=== PATIENT | female | born 1945 | race African-American/Black ===

== ENCOUNTER 2016-10-16 07:22 | Day surgery (SDC) | payer MEDICARE, OTHER ==
[~2016-10-16 07:22] MED LIST: KETOROLAC TROMETHAMINE 0.45% 4 DROP/0.4 ML DROPERETTE OS PRN
[2016-10-16] MEDS: TETRACAINE HCL 0.5% OPH SOLN 0.6 ML DROPERETTE OS PRN ×2 (07:51→08:14)
[2016-10-16] MEDS: BESIFLOXACIN HCL 0.6% OPH SUSP 5 ML BOTTLE OS PRN ×4 (07:51→08:46)
[2016-10-16] MEDS: CYCLOPENTOLATE 0.2%/PHENYLEPHRINE 1% OPH SOLN 2 ML OS PRN ×3 (07:51→08:10)
[2016-10-16] MEDS: TROPICAMIDE 1% OPH SOLN 3 ML OS PRN ×3 (07:51→08:10)
[2016-10-16] MEDS ORDERED: MIDAZOLAM 2 MG/2 ML INJ ONE (08:01)
[2016-10-16] MEDS: LIDOCAINE 4% INJ/PF (40 MG/ML) 5 ML AMPUL OS PRN ×2 (08:20)
[2016-10-16] MEDS: BUPIVACAINE HCL 0.75% INJ/PF (7.5 MG/1 ML) 10 ML SDV OS PRN ×2 (08:20)
[2016-10-16] MEDS: PHENYLEPHRINE/KETOROLAC 1%-0.3% 4 ML VIAL ONE ×2 (08:28)
[2016-10-16] MEDS: LIDOCAINE 1% INJ-PF (10 MG/ML) 30 ML SDV ONE ×2 (08:30→08:31)
[2016-10-16] MEDS: CHONDR SU A NA/HYALUR INTRAOC KIT (SURGICARE) ONE ×2 (08:32)
--- NOTE | 2016-10-16 09:29 | [facility] OPERATIVE REPORT E ---
[facility] Operative Report NAME: DAGO EVANGELISTA AGE: 71Y DATE OF SURGERY: 10/16/2016 ROOM: PREOPERATIVE DIAGNOSIS: Cataract, left eye. POSTOPERATIVE DIAGNOSIS: Cataract, left eye. PROCEDURE PERFORMED: Phacoemulsification with posterior chamber intraocular lens, left eye. SURGEON: MARSHA ARCHER M.D. ANESTHESIA: Topical with MAC. INDICATIONS FOR SURGERY: Difficulty reading words on TV and road signs. Best corrected visual acuity 20/50. PROCEDURE: The patient was brought to the Operating Room and placed on the operative table. Following tetracaine drops, topical anesthesia was administered. This consisted of instrument wipe pledgets soaked in a solution of 4% Xylocaine mixed with 0.75% Marcaine in a 1:2 ratio. A 2 x 1 cm pledget was placed in the superior fornix. A 1 x 1 cm pledget was placed in the inferior fornix. The eye was patched shut for 5 minutes. The patch was removed. The eye was sterilely prepped and draped in the usual manner. Lid speculum was placed in the eye. The pledgets were removed and 4-0 black silk sutures were placed around the superior and the inferior rectus muscles to be used as traction. A conjunctival peritomy was made at the 10 o'clock position. Hemostasis was obtained with bipolar cautery. A posterior limbal groove was created using a crescent knife and dissected anteriorly towards the cornea. A sharp point blade was used to create a paracentesis site at the 2 o'clock position. A 2.4-mm keratome was used to enter the anterior chamber through the groove. Viscoelastic was injected into the anterior chamber. An anterior capsulotomy was performed using Utrata forceps in a capsulorrhexis fashion. Hydrodissection and hydrodelineation were performed. Phacoemulsification was performed in [id number] technique. A total of 23 seconds phaco time was used. Following this, the I/A unit was used to remove residual cortex. Viscoelastic was injected into the capsular bag. Intraocular lens model [id number], 23.5 diopters, serial number [id number], was placed in the capsular bag. The I/A unit was used to remove residual viscoelastic. The wound was seen to be watertight under high and low pressure, and no sutures were placed. The intraocular lens was well centered. The pressure was adjusted in the eye to normal pressure. The 4-0 black silk sutures and lid speculum were removed. The eye was shielded after Besivance drops were placed. The patient tolerated the procedure well and was sent to the Recovery Room in good condition. DICTATING PHYSICIAN: MARSHA ARCHER M.D. [id number] PHY#: [id number] ID: [id number] JOB#: [id number] ACCT: [id number] cc:MARSHA ARCHER M.D. >
--- NOTE | 2016-10-16 09:29 | [facility] DISCHARGE SUMMARY E ---
[facility] Discharge Summary NAME: DAGO EVANGELISTA AGE: 71Y ADMITTED: 10/16/2016 DISCHARGED: 10/16/2016 FINAL DIAGNOSIS: Cataract, left eye. HOSPITAL COURSE: The patient is a 71-year-old lady who underwent uneventful cataract extraction with intraocular lens implant, left eye, on 10/16/2016. She will be discharged to home. She was instructed to resume preoperative medications, to take Tylenol as needed for discomfort, to keep her eye shielded, to use Besivance, Durezol and Ilevro at 3 p.m. and 8 p.m., and to follow up in my office in 1 day. DICTATING PHYSICIAN: MARSHA ARCHER M.D. [id number] PHY#: [id number] ID: [id number] JOB#: [id number] ACCT: [id number] cc:MARHSA ARCHER M.D. >
[2016-10-16] MEDS ORDERED: LIDOCAINE 1% INJ-PF (10 MG/ML) 30 ML SDV ONE (12:40)
== END 2016-10-16 09:38 | disposition home or self-care (01) ==
LOC: SC 07:22
PROVIDERS: ATTEND Ophthalmology
PROC: 08RK3JZ Replacement of Left Lens with Synthetic Substitute, Percutaneous Approach (ICD-10-PCS; principal; 2016-10-16 08:30)
DX: H25.813 Combined forms of age-related cataract, bilateral (principal); H04.123 Dry eye syndrome of bilateral lacrimal glands; E11.9 Type 2 diabetes mellitus without complications; E78.00 Pure hypercholesterolemia, unspecified; I10 Essential (primary) hypertension; K21.9 Gastro-esophageal reflux disease without esophagitis; R00.2 Palpitations; Z88.0 Allergy status to penicillin; Z88.5 Allergy status to narcotic agent; I69.364 Other paralytic syndrome following cerebral infarction affecting left non-dominant side; Z79.899 Other long term (current) drug therapy; I25.2 Old myocardial infarction; Z79.84 Long term (current) use of oral hypoglycemic drugs
CPT/HCPCS: 66984; 82962; V2632; J2250; J3490 ×4; A9270; C9447; 142

== ENCOUNTER 2016-11-06 08:19 | Day surgery (SDC) | payer MEDICARE, OTHER ==
[~2016-11-06 08:19] MED LIST changes: +BUPIVACAINE HCL 0.75% INJ/PF (7.5 MG/1 ML) 10 ML SDV OD PRN; +CHONDR SU A NA/HYALUR INTRAOC KIT (SURGICARE) ONE; +KETOROLAC TROMETHAMINE 0.45% 4 DROP/0.4 ML DROPERETTE OD PRN; -KETOROLAC TROMETHAMINE 0.45% 4 DROP/0.4 ML DROPERETTE OS PRN; +LIDOCAINE 4% INJ/PF (40 MG/ML) 5 ML AMPUL OD PRN; +PHENYLEPHRINE/KETOROLAC 1%-0.3% 4 ML VIAL ONE
[2016-11-06] MEDS: CYCLOPENTOLATE 0.2%/PHENYLEPHRINE 1% OPH SOLN 2 ML OD PRN ×3 (08:34→09:00)
[2016-11-06] MEDS: TROPICAMIDE 1% OPH SOLN 3 ML OD PRN ×3 (08:35→09:01)
[2016-11-06] MEDS: BESIFLOXACIN HCL 0.6% OPH SUSP 5 ML BOTTLE OD PRN ×3 (08:36→09:36)
[2016-11-06] MEDS: TETRACAINE HCL 0.5% OPH SOLN 0.6 ML DROPERETTE OD PRN ×2 (08:38→09:02)
[2016-11-06] MEDS ORDERED: MIDAZOLAM 2 MG/2 ML INJ ONE (08:54)
[2016-11-06] MEDS ORDERED: FENTANYL CITRATE INJ/PF 100 MCG/2 ML AMPUL ONE (08:55)
--- NOTE | 2016-11-06 09:48 | [facility] OPERATIVE REPORT E ---
[facility] Operative Report NAME: DAGO EVANGELISTA AGE: 71Y DATE OF SURGERY: 11/06/2016 ROOM: PREOPERATIVE DIAGNOSIS: Cataract, right eye. POSTOPERATIVE DIAGNOSIS: Cataract, right eye. PROCEDURE PERFORMED: Phacoemulsification with posterior chamber intraocular lens, right eye. SURGEON: MARSHA ARCHER M.D. ANESTHESIA: Topical with MAC. INDICATIONS FOR SURGERY: Difficulty reading words on TV. Best corrected visual acuity 20/40. PROCEDURE: The patient was brought to the Operating Room and placed on the operative table. Following tetracaine drops, topical anesthesia was administered. This consisted of instrument wipe pledgets soaked in a solution of 4% Xylocaine mixed with 0.75% Marcaine in a 1:2 ratio. A 2 x 1 cm pledget was placed in the superior fornix. A 1 x 1 cm pledget was placed in the inferior fornix. The eye was patched shut for 5 minutes. The patch was removed. The eye was sterilely prepped and draped in the usual manner. Lid speculum was placed in the eye. The pledgets were removed and 4-0 black silk sutures were placed around the superior and the inferior rectus muscles to be used as traction. A conjunctival peritomy was made at the 10 o'clock position. Hemostasis was obtained with bipolar cautery. A posterior limbal groove was created using a crescent knife and dissected anteriorly towards the cornea. A sharp point blade was used to create a paracentesis site at the 2 o'clock position. A 2.4-mm keratome was used to enter the anterior chamber through the groove. Viscoelastic was injected into the anterior chamber. An anterior capsulotomy was performed using Utrata forceps in a capsulorrhexis fashion. Hydrodissection and hydrodelineation were performed. Phacoemulsification was performed in [id number]-[id number] technique. A total of 29 seconds phaco time was used. Following this, the I/A unit was used to remove residual cortex. Viscoelastic was injected into the capsular bag. Intraocular lens model SN60WF, 22.0 diopters, serial number [id number], was placed in the capsular bag. The I/A unit was used to remove residual viscoelastic. The wound was seen to be watertight under high and low pressure, and no sutures were placed. The intraocular lens was well centered. The pressure was adjusted in the eye to normal pressure. The 4-0 black silk sutures and lid speculum were removed. The eye was shielded after Besivance drops were placed. The patient tolerated the procedure well and was sent to the Recovery Room in good condition. DICTATING PHYSICIAN: MARSHA ARCHER M.D. [id number] PHY#: [id number] ID: [id number] JOB#: [id number] ACCT: [id number] cc:MARSHA ARCHER M.D. >
--- NOTE | 2016-11-06 09:48 | [facility] DISCHARGE SUMMARY E ---
[facility] Discharge Summary NAME: DAGO EVANGELISTA AGE: 71Y ADMITTED: 11/06/2016 DISCHARGED: 11/06/2016 FINAL DIAGNOSIS: Cataract, right eye. HOSPITAL COURSE: The patient is a 71-year-old lady who underwent uneventful cataract extraction with intraocular lens implant, right eye, on 11/06/2016. She will be discharged to home. She was instructed to resume preoperative medications, to take Tylenol as needed for discomfort, to keep her eye shielded, to use Besivance, Durezol and Ilevro at 3 p.m. and 8 p.m., and to follow up in my office in 1 day. DICTATING PHYSICIAN: MARSHA ARCHER M.D. [id number] PHY#: [id number] ID: [id number] JOB#: [id number] ACCT: [id number] cc:MARSHA ARCHER M.D. >
== END 2016-11-06 10:27 | disposition home or self-care (01) ==
LOC: SC 08:19
PROVIDERS: ATTEND Ophthalmology
PROC: 08RJ3JZ Replacement of Right Lens with Synthetic Substitute, Percutaneous Approach (ICD-10-PCS; principal; 2016-11-06 09:30)
DX: H25.811 Combined forms of age-related cataract, right eye (principal); Z96.1 Presence of intraocular lens; E11.9 Type 2 diabetes mellitus without complications; K21.9 Gastro-esophageal reflux disease without esophagitis; I10 Essential (primary) hypertension; R00.2 Palpitations; I25.2 Old myocardial infarction; Z79.84 Long term (current) use of oral hypoglycemic drugs; Z79.899 Other long term (current) drug therapy; Z88.0 Allergy status to penicillin; Z88.5 Allergy status to narcotic agent
CPT/HCPCS: 66984; 82962; V2632; J2250; J3490 ×3; A9270; J3010; C9447; 142

== ENCOUNTER 2017-03-15 15:16 | Observation (INO) | payer MEDICARE, OTHER ==
[2017-03-15] MEDS ORDERED: ASPIRIN 81 MG TABLET, CHEWABLE PO ONE (15:20)
[2017-03-15 15:50] LABS: ABSOLUTE BASOPHILS # (AUTO) 0.1 10^3/uL (0.0-0.2); ABSOLUTE EOSINOPHILS # (AUTO) 0.1 10^3/uL (0.0-0.6); ABSOLUTE LYMPHOCYTES (AUTO) 2.8 10^3/uL (0.5-4.7); ABSOLUTE MONOCYTES (AUTO) 0.7 10^3/uL (0.1-1.4); ABSOLUTE NEUT (AUTO) 6.1 10^3/uL (1.7-8.2); EOSINOPHILS % (AUTO) 0.7 % (0-6); HEMATOCRIT 38.6 % (36.0-47.0); HEMOGLOBIN 13.3 g/dL (12.0-15.5); HGB HCT DIFFERENCE 1.3; LYMPHOCYTES % (AUTO) 28.5 % (13-45); MEAN CORPUSCULAR HEMOGLOBIN 31.2 pg (27.0-33.4); MEAN CORPUSCULAR HGB CONC 34.4 g/dL (32.0-36.0); MEAN CORPUSCULAR VOLUME 91 fl (80-97); MONOCYTES % (AUTO) 7.6 % (3-13); RED BLOOD COUNT 4.26 10^6/uL (3.72-5.28); RED CELL DISTRIBUTION WIDTH 13.6 % (11.5-14.0); SEGMENTED NEUTROPHILS % (AUTO) 62.2 % (42-78); WHITE BLOOD COUNT 9.8 10^3/uL (4.0-10.5)
--- NOTE | 2017-03-15 16:31 | ER Document Report ---
ED Cardiac - General Chief Complaint: Chest Pain Stated Complaint: CHEST PAIN Time Seen by Provider: 03/15/17 16:27 Notes: Patient says that she is experiencing a "heavy" hurting in the mid anterior center of her chest that started about 6 AM this morning as she was laying on the bed watching TV. She has never had this pain before, although she has had a heart attack in the past with different symptoms. Pain does not radiate. Nothing seems to make it better or worse. She went to a local urgent care who did not think her EKG was safe to send the patient home so she was referred here by EMS. 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 She is able to stand with assistance and take a couple of steps with assistance. Her left arm is in contracture position. Patient denies any difficulty breathing or shortness of breath. No nausea or vomiting or diarrhea. No sweats. No fevers. Patient was evaluated by her doctor, Dr. Hardin, in [facility] a couple of weeks ago and he added Prozac to her medications. She has been taking 1 pill a day and then last night increased to 2 pills, at the advice of her primary care provider. Also suffers from anxiety and chronic pain. Hypertension, NIDDM. TRAVEL OUTSIDE OF THE [place] IN LAST 30 DAYS: No - Related Data Allergies/Adverse Reactions: codeine [Codeine] Allergy (Verified 10/16/16 07:59) Penicillins Allergy (Verified 10/16/16 07:59) Past Medical History - Social History Smoking Status: Never Smoker Chew tobacco use (# tins/day): No Frequency of alcohol use: None Drug Abuse: None Family History: Reviewed & Not Pertinent Patient has suicidal ideation: No Patient has homicidal ideation: No - Past Medical History Cardiac Medical History: Reports: Hx Heart Attack - 11/2015; no stent, Hx Hypercholesterolemia, Hx Hypertension Neurological Medical History: Reports: Hx Cerebrovascular Accident - 7 STROKES; CANNOT WALK USES A W/C Endocrine Medical History: Reports: Hx Diabetes Mellitus Type 2 Past Surgical History: Reports: Hx Cardiac Catheterization, Hx Orthopedic Surgery, Hx Tubal Ligation - Immunizations Hx Diphtheria, Pertussis, Tetanus Vaccination: Yes Review of Systems - Review of Systems Notes: REVIEW OF SYSTEMS: CONSTITUTIONAL : Denies fever. EENT: Denies eye, ear, nose or mouth or throat pain or other symptoms. CARDIOVASCULAR: See HPI. RESPIRATORY: Denies cough, chest congestion, or shortness of breath. GASTROINTESTINAL: Denies abdominal pain or nausea, vomiting, or diarrhea. GENITOURINARY: Denies difficulty or painful urinating, urinary frequency, blood in urine. MUSCULOSKELETAL: Denies back or neck pain. Denies joint pain or swelling. SKIN: Denies rash or skin lesions. NEUROLOGICAL: Denies LOC or altered mental status. Denies headache. Patient has left-sided hemiparalysis with contractures of the left upper extremity. Denies sensory loss or motor deficits. ALL OTHER SYSTEMS REVIEWED AND NEGATIVE. Physical Exam - Vital signs Vitals: Pulse Ox 97 03/15/17 15:21 Interpretation: Normal - Notes Notes: PHYSICAL EXAMINATION: GENERAL: Well-appearing, in no acute distress. HEAD: Atraumatic, normocephalic. EYES: Pupils equal round and reactive to light, extraocular movements intact. ENT: oropharynx clear without exudates. Moist mucous membranes. NECK: Normal range of motion, supple. No carotid bruits heard. LUNGS: Breath sounds clear and equal bilaterally. HEART: Regular rate and rhythm without murmurs. ABDOMEN: Soft, nontender. No guarding or rebound. BACK: No tenderness throughout entire back. EXTREMITIES: Right side with normal range of motion without pain. Left-sided hemiplegia with contracture of the left upper extremity. NEUROLOGICAL: Normal speech, only able to stand with someone else's assistance. Unable to walk. Awake, alert, and oriented x3. Cranial nerves normal. PSYCH: Normal mood, normal affect. SKIN: Warm, dry, no rashes. Course - Re-evaluation Re-evalutation: 03/15/17 17:28 Workup all essentially normal. Still feel patient merits further observation in -house overnight. Discussed with hospitalist who will admit the patient to telemetry as an observation. Patient currently does not have any chest pains. - Vital Signs Vital signs: Temp Pulse Resp BP Pulse Ox 97.6 F 74 16 110/74 97 03/15/17 16:12 03/15/17 16:12 03/15/17 16:12 03/15/17 16:12 03/15/17 16:12 - Laboratory Result Diagrams: 03/15/17 15:30 03/15/17 16:12 Laboratory results interpreted by me: 03/15/17 16:12 Carbon Dioxide 32 H Est GFR (Non-Af Amer) 54 L Glucose 137 H - Diagnostic Test Radiology results interpreted by me: 03/15/17 17:31 Chest x-ray is normal. - EKG Interpretation by Me EKG shows normal: Sinus rhythm Rate: Normal Rhythm: NSR Voltage: Increased voltage - LVH, Consistant with LVH Discharge - Discharge Clinical Impression: Chest pain Disposition: ADMITTED OBSERVATION Admitting Provider: Hospitalist Unit Admitted: Telemetry Referrals: CANDY FRY MD [Primary Care Provider] - Follow up as needed
[2017-03-15 16:47] LABS: ALANINE AMINOTRANSFERASE 24 U/L (9-52); ALBUMIN 4.1 g/dL (3.5-5.0); ALKALINE PHOSPHATASE 113 U/L (38-126); ANION GAP 12 (5-19); ASPARTATE AMINO TRANSFERASE 21 U/L (14-36); BILIRUBIN,DIRECT 0.3 mg/dL (0.0-0.4); BILIRUBIN,TOTAL 0.5 mg/dL (0.2-1.3); BLOOD UREA NITROGEN 16 mg/dL (7-20); CARBON DIOXIDE 32 mmol/L (22-30); CHLORIDE 100 mmol/L (98-107); CREATINE KINASE 39 U/L (30-135); CREATININE RESULT 1.02 mg/dL (0.52-1.25); GLUCOSE 137 mg/dL (75-110); POTASSIUM 4.2 mmol/L (3.6-5.0); SODIUM 143.5 mmol/L (137-145); TOTAL PROTEIN 7.7 g/dL (6.3-8.2)
--- NOTE | 2017-03-15 16:54 | RADIOLOGY REPORT (SQ) ---
EXAM DESCRIPTION: CHEST SINGLE VIEW COMPLETED DATE/TIME: 03/15/2017 4:43 pm REASON FOR STUDY: cp COMPARISON: 09/26/2015 EXAM PARAMETERS: NUMBER OF VIEWS: One view. TECHNIQUE: Single frontal radiographic view of the chest acquired. RADIATION DOSE: NA LIMITATIONS: None. FINDINGS: LUNGS AND PLEURA: No opacities, masses or pneumothorax. No pleural effusion. MEDIASTINUM AND HILAR STRUCTURES: No masses. Contour normal. HEART AND VASCULAR STRUCTURES: Heart normal in size. Normal vasculature. BONES: No acute findings. HARDWARE: None in the chest. OTHER: No other significant finding. IMPRESSION: NO ACUTE RADIOGRAPHIC FINDING IN THE CHEST. TECHNICAL DOCUMENTATION: JOB ID: [id number]
[2017-03-15 17:00] LABS: CREATINE KINASE MB < 0.22 ng/mL (<4.55); TROPONIN I < 0.012 ng/mL
--- NOTE | 2017-03-15 18:09 | PDOC H&P ---
History of Present Illness Admission Date/PCP: CANDY FRY MD Patient complains of: Chest pain History of Present Illness: DAGO EVANGELISTA is a 71 year old female with a past medical history significant for coronary artery disease. She has had an MS in the past and cardiac catheterization but no stent placement. She reports CVA 7 and she has residual left hemiparesis. She basically can get out of bed and walk very small distances with a quad cane. In addition she has diabetes mellitus, hypertension and hyperlipidemia. The patient was laying in bed this morning and developed substernal chest discomfort. She states that it was a pressure that was constant and did not go away. She is still having some chest discomfort at this time. She had no nausea associated with this. No diaphoresis. There was nothing that would make it better or worse. She presented to the emergency room for further evaluation. Her initial troponin was negative. Lab work was unremarkable. She was referred for an observation admission for a cardiac rule out. Past Medical History Cardiac Medical History: Reports: Coronary Artery Disease, Myocardial Infarction - 11/2015; no stent, Hyperlipidema, Hypertension Pulmonary Medical History: Denies: Asthma, Chronic Obstructive Pulmonary Disease (COPD) EENT Medical History: Reports: None Neurological Medical History: Reports: None, Ischemic CVA Denies: Seizures Endocrine Medical History: Reports: Diabetes Mellitus Type 2 Renal/ Medical History: Reports: None Malignancy Medical History: Reports: None GI Medical History: Reports: Gastroesophageal Reflux Disease Denies: Hepatitis, Hiatal Hernia Musculoskeltal Medical History: Reports: None Skin Medical History: Reports: None Psychiatric Medical History: Reports: None, Depression Traumatic Medical History: Reports: None Hematology: Denies: Anemia, Sickle Cell Disease Infectious Medical History: Reports: None Past Surgical History Past Surgical History: Reports: Cardiac Catheterization, Tubal Ligation Denies: Amputation, Mastectomy, Pacemaker Social History Information Source: Patient Lives with: Family Smoking Status: Never Smoker Frequency of Alcohol Use: None Hx Recreational Drug Use: No Hx Prescription Drug Abuse: No Family History Family History: Reviewed & Not Pertinent Parental Family History Reviewed: Yes Children Family History Reviewed: Yes Sibling(s) Family History Reviewed.: Yes Medication/Allergy Home Medications: Amlodipine Besylate [Norvasc 5 mg Tablet] 5 mg PO DAILY 03/15/17 Atorvastatin Calcium [Lipitor 20 mg Tablet] 20 mg PO QHS 03/15/17 Fluoxetine HCl [Prozac] 10 mg PO DAILY 03/15/17 Gabapentin [Neurontin 100 mg Capsule] 100 mg PO BIDP PRN 03/15/17 Glipizide [Glipizide ER] 5 mg PO DAILY 03/15/17 Hydrochlorothiazide [Hydrodiuril 12.5 mg Capsule] 12.5 mg PO DAILY 03/15/17 Metoprolol Succinate [Toprol XL 100 mg Tablet] 100 mg PO Q12 03/15/17 Pantoprazole Sodium [Protonix] 40 mg PO DAILY 03/15/17 Tizanidine HCl [Zanaflex 4 mg Tablet] 4 mg PO Q6HP PRN 03/15/17 Allergies/Adverse Reactions: codeine [Codeine] Allergy (Verified 03/15/17 18:01) Penicillins Allergy (Verified 03/15/17 18:01) Review of Systems Constitutional: ABSENT: chills, fatigue, fever(s), headache(s), weakness, weight loss Eyes: ABSENT: visual disturbances Ears: ABSENT: hearing changes Nose, Mouth, and Throat: ABSENT: headache(s), mouth pain, sore throat Cardiovascular: PRESENT: chest pain. ABSENT: dyspnea on exertion, edema, orthropnea, palpitations Respiratory: ABSENT: cough, dyspnea, hemoptysis, sputum Gastrointestinal: ABSENT: abdominal pain, bloating, constipation, diarrhea, heartburn, nausea, vomiting Genitourinary: ABSENT: difficulty urinating, dysuria, hematuria Musculoskeletal: ABSENT: back pain Integumentary: ABSENT: diaphoresis, erythema, lesions, rash Neurological: PRESENT: abnormal gait, other - Left hemiparesis Psychiatric: PRESENT: anxiety, depression Endocrine: ABSENT: cold intolerance, heat intolerance, polydipsia, polyphagia, polyuria Hematologic/Lymphatic: ABSENT: easy bleeding, easy bruising, lymphadenopathy Allergic/Immunologic: ABSENT: seasonal rhinorrhea Physical Exam Vital Signs: Temp Pulse Resp BP Pulse Ox 97.6 F 74 16 110/74 97 03/15/17 16:12 03/15/17 16:12 03/15/17 16:12 03/15/17 16:12 03/15/17 16:12 Intake & Output 03/14/17 03/15/17 03/16/17 06:59 06:59 06:59 Weight 60.328 kg General appearance: PRESENT: no acute distress, thin, well-developed Head exam: PRESENT: atraumatic, normocephalic Eye exam: PRESENT: conjunctiva pink, EOMI, PERRLA. ABSENT: scleral icterus Ear exam: PRESENT: normal external ear exam Mouth exam: PRESENT: moist, tongue midline Neck exam: ABSENT: carotid bruit, JVD, lymphadenopathy, thyromegaly Respiratory exam: PRESENT: clear to auscultation pelon, other - She has chest wall tenderness across the sternum and left anterior chest wall when palpated.. ABSENT: rales, rhonchi, wheezes Cardiovascular exam: PRESENT: RRR. ABSENT: diastolic murmur, rubs, systolic murmur GI/Abdominal exam: PRESENT: normal bowel sounds, soft. ABSENT: distended, guarding, mass, organolmegaly, rebound, tenderness Rectal exam: PRESENT: deferred Extremities exam: PRESENT: full ROM. ABSENT: calf tenderness, clubbing, pedal edema Neurological exam: PRESENT: alert, awake, oriented to person, oriented to place , oriented to time, oriented to situation, CN II-XII grossly intact, other - Residual left hemiparesis. ABSENT: motor sensory deficit Psychiatric exam: PRESENT: appropriate affect, normal mood. ABSENT: homicidal ideation, suicidal ideation Skin exam: PRESENT: dry, intact, warm. ABSENT: cyanosis, rash Results Laboratory Results: 03/15/17 15:30 03/15/17 16:12 03/15/17 03/15/17 03/15/17 15:30 15:30 16:12 WBC 9.8 RBC 4.26 Hgb 13.3 Hct 38.6 MCV 91 MCH 31.2 MCHC 34.4 RDW 13.6 Plt Count 248 Seg Neutrophils % 62.2 Lymphocytes % 28.5 Monocytes % 7.6 Eosinophils % 0.7 Basophils % 1.0 Absolute Neutrophils 6.1 Absolute Lymphocytes 2.8 Absolute Monocytes 0.7 Absolute Eosinophils 0.1 Absolute Basophils 0.1 Sodium Cancelled 143.5 Potassium Cancelled 4.2 Chloride Cancelled 100 Carbon Dioxide Cancelled 32 H Anion Gap Cancelled 12 BUN Cancelled 16 Creatinine Cancelled 1.02 Est GFR ( Amer) Cancelled > 60 Est GFR (Non-Af Amer) Cancelled 54 L Glucose Cancelled 137 H Calcium Cancelled 10.0 Total Bilirubin Cancelled 0.5 AST Cancelled 21 ALT Cancelled 24 Alkaline Phosphatase Cancelled 113 Total Protein Cancelled 7.7 Albumin Cancelled 4.1 03/15/17 03/15/17 03/15/17 15:30 15:30 16:12 Creatine Kinase Cancelled 39 CK-MB (CK-2) Cancelled Troponin I Cancelled 03/15/17 16:12 Creatine Kinase CK-MB (CK-2) < 0.22 Troponin I < 0.012 Impressions: Chest X-Ray 03/15/17 15:21 IMPRESSION: NO ACUTE RADIOGRAPHIC FINDING IN THE CHEST. Assessment & Plan - Diagnosis (1) Chest pain Plan: The patient has atypical chest pain that is likely musculoskeletal due to her tenderness to palpation. However she does have a significant cardiac history and a history of 7 CVAs. I cannot rule out a cardiac cause. We are going to place her in observation in the hospital. We will trend her serial troponins and she will undergo a Cardiolite stress test in the morning. If all of this is negative I suspect the patient can be discharged home tomorrow afternoon. (2) History of CVA (cerebrovascular accident) Plan: With residual left hemiparesis. She will continue her home regimen. (3) Left hemiparesis Plan: Secondary to her acute CVAs. We will get physical therapy to see her tomorrow morning. (4) Diabetes mellitus Plan: She will be covered with sliding scale insulin here in the hospital. I will obtain an hemoglobin A1c in the morning. She can resume her home medications at discharge (5) Hypertension Plan: Currently her systolic pressure is 110. Her blood pressure is stable. She will continue her home regimen. (6) Hyperlipidemia Plan: We will obtain a lipid panel in the morning. - Time Time Spent: 50 to 70 Minutes - Inpatient Certification Medical Necessity: Other - The patient will be placed in observation in the hospital. I believe that her workup can be completed in less than 2 midnights. Hopefully she can be discharged home tomorrow afternoon.
[2017-03-15] MEDS ORDERED: GLUCAGON,HUMAN RECOMB 1 MG INJ IM PRN (18:10)
[2017-03-15] MEDS ORDERED: DEXTROSE 40% GEL 15 GM TUBE PO PRN ×2 (18:10)
[2017-03-15] MEDS ORDERED: DEXTROSE 50%-WATER 25 GM/50 ML DISP.SYRIN IV PRN ×2 (18:10)
[2017-03-15] MEDS ORDERED: GABAPENTIN 100 MG CAPSULE PO PRN (18:10)
--- NOTE | 2017-03-15 18:28 | EKG REPORT ---
SEVERITY:- ABNORMAL ECG - SINUS RHYTHM LEFT VENTRICULAR HYPERTROPHY BORDERLINE T ABNORMALITIES, INFERIOR LEADS : Confirmed by: Mason Gonzalez MD 15-Mar-2017 18:27:16
[2017-03-15] MEDS ORDERED: ENOXAPARIN SODIUM INJ 40 MG/0.4 ML DISP.SYRIN SUBCUT ONE (18:45)
[2017-03-15 19:20] LABS: CREATINE KINASE MB < 0.22 ng/mL (<4.55); TROPONIN I < 0.012 ng/mL
[2017-03-15] MEDS: METOPROLOL SUCCINATE 50 MG TAB.SR.24H PO SCH (22:59)
[2017-03-15] MEDS: ATORVASTATIN CALCIUM 20 MG TABLET PO SCH (22:59)
[2017-03-16 00:59] LABS: TROPONIN I < 0.012 ng/mL
[2017-03-16] MEDS: ACETAMINOPHEN 325 MG TABLET PO PRN (04:40)
[2017-03-16] MEDS: TIZANIDINE HCL 4 MG TABLET PO PRN (04:40)
[2017-03-16] MEDS: LANSOPRAZOLE 30 MG TAB.RAP.DR PO SCH (06:04)
[2017-03-16 06:24] LABS: HEMATOCRIT 36.1 % (36.0-47.0); HEMOGLOBIN 12.5 g/dL (12.0-15.5); HGB HCT DIFFERENCE 1.4; MEAN CORPUSCULAR HEMOGLOBIN 31.3 pg (27.0-33.4); MEAN CORPUSCULAR HGB CONC 34.7 g/dL (32.0-36.0); MEAN CORPUSCULAR VOLUME 90 fl (80-97); RED BLOOD COUNT 3.99 10^6/uL (3.72-5.28); RED CELL DISTRIBUTION WIDTH 13.7 % (11.5-14.0); WHITE BLOOD COUNT 9.6 10^3/uL (4.0-10.5)
[2017-03-16 06:50] LABS: ANION GAP 10 (5-19); BLOOD UREA NITROGEN 16 mg/dL (7-20); CALCIUM 9.7 mg/dL (8.4-10.2); CARBON DIOXIDE 29 mmol/L (22-30); CHLORIDE 102 mmol/L (98-107); CHOLESTEROL 140.06 mg/dL (0-200); CREATINE KINASE 37 U/L (30-135); CREATININE RESULT 1.03 mg/dL (0.52-1.25); Direct HDL 44 mg/dL (>40); GLUCOSE 141 mg/dL (75-110); POTASSIUM 3.8 mmol/L (3.6-5.0); SODIUM 140.9 mmol/L (137-145); TRIGLYCERIDES 105 mg/dL (<150)
[2017-03-16] MEDS ORDERED: INFLUENZA ADLT QUAD (36MOS+) 2017-18 VAC 0.5 ML SYR IM PRN (06:54)
[2017-03-16 07:00] LABS: CREATINE KINASE MB < 0.22 ng/mL (<4.55); DIRECT LDL 66 mg/dL (<100); TROPONIN I < 0.012 ng/mL
--- NOTE | 2017-03-16 07:51 | EKG REPORT ---
SEVERITY:- ABNORMAL ECG - SINUS RHYTHM LEFT VENTRICULAR HYPERTROPHY : Confirmed by: Mason Gonzalez MD 16-Mar-2017 07:50:35
--- NOTE | 2017-03-16 08:57 | PROGRESS NOTE E ---
Progress Note NAME: DAGO EVANGELISTA : 1945 AGE: 71Y DATE: 03/16/2017 ROOM: 416 SUBJECTIVE: The patient is a pleasant 71-year-old male, who has history significant for coronary artery disease, cardiac catheterization with stent placement, CVA with left-sided paresis, admitted with chest pain. The patient is scheduled for a stress test tomorrow, feeling better today. OBJECTIVE: GENERAL: Patient lying in bed, comfortable, not in distress. VITAL SIGNS: Blood pressure 111/64, temperature 98.5, heart rate 86, respiratory 12, saturation 96% on room air. HEENT: Normocephalic, atraumatic. Pupils round, reactive to light and accommodation bilaterally. Extraocular motions intact. Ears: Tympanic membranes intact bilaterally. No discharge from the ears. No discharge from the nose. NECK: Supple. No increased JVD. No thyromegaly. No lymphadenopathy. CARDIOVASCULAR: Normal S1, S2. Regular rate and rhythm. No murmur. No gallop. RESPIRATORY: Lungs clear. ABDOMEN: Soft and nontender. MUSCULOSKELETAL: No edema. NEUROLOGIC: Awake, alert. SKIN: No rash. LABORATORY DATA: Sodium 140, potassium 3.8, chloride 102, creatinine 1, white blood count 9.6, hemoglobin 12.5. ASSESSMENT: 1. CHEST PAIN, RULE OUT MYOCARDIAL INFARCTION. Two sets of cardiac enzymes were negative. 2. HISTORY OF CEREBROVASCULAR ACCIDENT WITH LEFT HEMIPARESIS. 3. DIABETES TYPE 2. 4. HYPERTENSION. 5. HYPERLIPIDEMIA. PLAN: We will continue current treatment. The patient is scheduled for a stress test tomorrow. DISPOSITION: The patient will stay in the hospital for stress test. Stress test scheduled for tomorrow morning. Outpatient cannot be done, so we change her status to inpatient because of stress test needs to be done tomorrow. The patient has risk factors for coronary artery disease. DICTATING PHYSICIAN: CLEOPATRA GREGORIO M.D. [id number] VIANCAY#: [id number] ID: [id number] JOB#: [id number] ACCT: [id number] cc: >
[2017-03-16] MEDS: ENOXAPARIN SODIUM INJ 40 MG/0.4 ML DISP.SYRIN SUBCUT SCH (10:23)
[2017-03-16] MEDS: METOPROLOL SUCCINATE 50 MG TAB.SR.24H PO SCH ×2 (10:26→22:16)
[2017-03-16] MEDS: HYDROCHLOROTHIAZIDE 12.5 MG CAPSULE PO SCH (10:27)
[2017-03-16] MEDS: FLUOXETINE HCL 20 MG/5 ML UDCUP PO SCH (10:28)
[2017-03-16] MEDS: AMLODIPINE BESYLATE 5 MG TABLET PO SCH (10:29)
[2017-03-16] MEDS: INSULIN REG, HUMAN 100 UNIT/ML 3 ML VIAL (PYX) SUBCUT PRN (12:38)
[2017-03-16] MEDS: ATORVASTATIN CALCIUM 20 MG TABLET PO SCH (22:16)
[2017-03-17] MEDS: TIZANIDINE HCL 4 MG TABLET PO PRN ×2 (03:13→20:51)
[2017-03-17] MEDS: ACETAMINOPHEN 325 MG TABLET PO PRN ×2 (03:14→20:51)
[2017-03-17] MEDS: LANSOPRAZOLE 30 MG TAB.RAP.DR PO SCH (05:30)
[2017-03-17] MEDS: FLUOXETINE HCL 20 MG/5 ML UDCUP PO SCH (10:43)
[2017-03-17] MEDS: AMLODIPINE BESYLATE 5 MG TABLET PO SCH (10:43)
[2017-03-17] MEDS: METOPROLOL SUCCINATE 50 MG TAB.SR.24H PO SCH ×2 (10:43→22:20)
[2017-03-17] MEDS: ENOXAPARIN SODIUM INJ 40 MG/0.4 ML DISP.SYRIN SUBCUT SCH (10:43)
[2017-03-17] MEDS: HYDROCHLOROTHIAZIDE 12.5 MG CAPSULE PO SCH (10:43)
[2017-03-17] MEDS ORDERED: REGADENOSON INJ 0.4 MG/5 ML DISP.SYRIN IV ONE (11:01)
[2017-03-17] MEDS: INSULIN REG, HUMAN 100 UNIT/ML 3 ML VIAL (PYX) SUBCUT PRN (12:15)
--- NOTE | 2017-03-17 13:38 | PROGRESS NOTE E ---
Progress Note NAME: DAGO EVANGELISTA : 1945 AGE: 71Y DATE: 03/17/2017 ROOM: 416 SUBJECTIVE: The patient is a pleasant 71-year-old female who has a past medical history significant for coronary artery disease. She had a cardiac cath with a stent placement in the past. CVA with left hemiparesis. Admitted with chest pain. She had a stress test this morning that was unremarkable. ID was ruled out. The patient is not in any acute pain at this point. OBJECTIVE: GENERAL: The patient is lying in bed, comfortable, not in distress. VITAL SIGNS: Blood pressure is 145/80, temperature 98, respiratory 17, saturation 99% on room air. HEENT: Normocephalic, atraumatic. Pupils are round and reactive to light and accommodation bilaterally. Extraocular movements intact. Ears: Tympanic membranes intact bilaterally. No discharge from the ears. No discharge from the nose. NECK: Supple. No increased JVD. No thyromegaly. No lymphadenopathy. CARDIOVASCULAR: Normal S1 and S2. Regular rate and rhythm. No murmur. No gallop. RESPIRATORY: Lungs clear. ABDOMEN: Soft and nontender. MUSCULOSKELETAL: No edema. NEUROLOGIC: Awake, alert. SKIN: No rash. DIAGNOSTIC DATA: Labs: White blood count 9.6, hemoglobin is 12.5. Sodium is 140, creatinine is 1.0. ASSESSMENT: 1. CHEST PAIN. RULED OUT ID. 2. HISTORY OF CEREBROVASCULAR ACCIDENT WITH LEFT HEMIPARESIS. 3. DIABETES TYPE 2. 4. HYPERLIPIDEMIA. 5. HYPERTENSION. PLAN: Continue current treatment. The patient had a stress test but I spoke with Dr. Escobar who said there is no ischemia. Dr. Escobar recommends an echocardiogram tomorrow morning. MEDICAL NECESSITY: The patient needs to stay for echo tomorrow morning. Discharge tomorrow morning after echo. DICTATING PHYSICIAN: CLEOPATRA GREGORIO M.D. [id number] PHY#: [id number] ID: [id number] JOB#: [id number] ACCT: [id number] cc: > [facility]
--- NOTE | 2017-03-17 14:13 | DRAGON STRESS TEST REPORT ---
Intravenous Lexiscan Cardiolite stress test using single photon emmision computerized tomography. Date of procedure: 03/17/2017. Ordering Provider: Ms. Kailyn Azul. Patient' s status: Inpatient Indication: Chest pain. Coronary risk factors: Age, hypertension, diabetes mellitus, tobacco abuse, and family history of coronary artery disease. Resting EKG: Sinus Rhythm. Within normal limits Stress EKG: No changes of ischemia. The patient had no chest pain or discomfort, and there were no arrhythmias seen. Reason for termination: Protocol. Conclusions: Normal EKG and hemodynamic response to IV Lexiscan. Nuclear data: At rest the patient was given 10.56 millicuries of technetium 99m sestamibi injected intravenously. As per protocol rest non gated SPECT images were obtained. Subsequently the patient was given intravenous Lexiscan at a dose of 0.4 mg in 5 mL intravenously, followed by flush with normal saline. Subsequently the stress dose of 30.5 millicuries of technetium 99m sestamibi was injected intravenously. As per protocol stress gated images were obtained. Nuclear interpretation: Note that the patient due to prior stroke on the left side has left arm contracted and cannot move it, and it is over the heart. Hence there is a mild attenuation artifact due to the arm being the involving the inferior wall which is more pronounced in the rest images compared to the stress images Review of images showed that rest of segments segments of the myocardium had normal perfusion at rest, and normal perfusion post stress with IV Lexiscan. All segments of the myocardium had normal motion, contraction, and thickening by gated study. T. I D. ratio was normal at 0.98. Computer read rest, and stress left ventricular ejection fraction were 33 %, and 39 %, respectively. Visually both the stress and rest ejection fractions were normal, and at least 55%. Conclusion: 1. There is no scintigraphic evidence of Lexiscan induced myocardial ischemia. 2. There is no scintigraphic evidence of myocardial infarction/scar. 3. There is attenuation artifact due to patient's contracted left arm which is mild but more pronounced in the rest images compared to stress images. I do not believe that this is a fixed defect due to infarction of scar. Correlate clinically. 4. Would recommend getting an echocardiogram for assessment of the patient's LV function.. Recommendations: Aggressive risk factor modification, and treating the underlying co- morbidities. MTDD
[2017-03-17] MEDS: ATORVASTATIN CALCIUM 20 MG TABLET PO SCH (22:20)
[2017-03-18] MEDS: LANSOPRAZOLE 30 MG TAB.RAP.DR PO SCH (05:23)
[2017-03-18] MEDS: HYDROCHLOROTHIAZIDE 12.5 MG CAPSULE PO SCH (10:22)
[2017-03-18] MEDS: AMLODIPINE BESYLATE 5 MG TABLET PO SCH (10:23)
[2017-03-18] MEDS: METOPROLOL SUCCINATE 50 MG TAB.SR.24H PO SCH (10:23)
[2017-03-18] MEDS: ENOXAPARIN SODIUM INJ 40 MG/0.4 ML DISP.SYRIN SUBCUT SCH (10:24)
--- NOTE | 2017-03-18 12:19 | PDOC DISCHARGE SUMMARY ---
General - Admit/Disc Date/PCP Admission Date/Primary Care Provider: 03/15/17 17:50 CANDY FRY MD Discharge Date: 03/18/17 - Discharge Diagnosis (1) Chest pain Summary: Likely musculoskeletal. She had a Cardiolite stress test which revealed no evidence of reversible ischemia. She had a 2D cardiac echo which is not yet been read but can be followed up as as an outpatient. (2) History of CVA (cerebrovascular accident) Summary: She will resume her home regimen. (3) Left hemiparesis Summary: She has residual left-sided hemiparesis from multiple CVAs in the past. She is at her baseline. (4) Diabetes mellitus Summary: She will resume her home regimen (5) Hypertension Summary: Stable (6) Hyperlipidemia Summary: She will resume her home regimen - Additional Information Discharge Diet: Cardiac Discharge Activity: Activity As Tolerated, Balance Activity w/Rest, Slowly Increase Activity Home Medications: Amlodipine Besylate [Norvasc 5 mg Tablet] 5 mg PO DAILY 03/15/17 Atorvastatin Calcium [Lipitor 20 mg Tablet] 20 mg PO QHS 03/15/17 Fluoxetine HCl [Prozac] 10 mg PO DAILY 03/15/17 Gabapentin [Neurontin 100 mg Capsule] 100 mg PO BIDP PRN 03/15/17 Glipizide [Glipizide ER] 5 mg PO DAILY 03/15/17 Hydrochlorothiazide [Hydrodiuril 12.5 mg Capsule] 12.5 mg PO DAILY 03/15/17 Metoprolol Succinate [Toprol XL 100 mg Tablet] 100 mg PO Q12 03/15/17 Pantoprazole Sodium [Protonix] 40 mg PO DAILY 03/15/17 Tizanidine HCl [Zanaflex 4 mg Tablet] 4 mg PO Q6HP PRN 03/15/17 History of Present Illness History of Present Illness: DAGO EVANGELISTA is a 71 year old female with a past medical history significant for coronary artery disease. She has had an GA in the past and cardiac catheterization but no stent placement. She reports CVA 7 and she has residual left hemiparesis. She basically can get out of bed and walk very small distances with a quad cane. In addition she has diabetes mellitus, hypertension and hyperlipidemia. The patient was laying in bed this morning and developed substernal chest discomfort. She states that it was a pressure that was constant and did not go away. She is still having some chest discomfort at this time. She had no nausea associated with this. No diaphoresis. There was nothing that would make it better or worse. She presented to the emergency room for further evaluation. Her initial troponin was negative. Lab work was unremarkable. She was referred for an observation admission for a cardiac rule out. Hospital Course Hospital Course: The patient was placed in observation in the hospital. Cardiolite stress test was obtained which revealed no evidence of reversible ischemia. She had a 2D cardiac echo obtained as well. This is not been read by the time of dictation and can be followed up by her primary care provider. Over the past couple of days the patient has improved and it is felt that she is stable for discharge. She will follow-up with her primary care provider Dr. Sage. I will defer to him on whether he wants to have her follow-up with cardiology as an outpatient. At this point maximum hospital benefits been reached. She will be discharged home today in stable condition. Physical Exam Vital Signs: Temp Pulse Resp BP Pulse Ox 98.6 F 86 13 128/74 H 100 03/18/17 08:09 03/18/17 08:09 03/18/17 08:09 03/18/17 08:09 03/18/17 08:09 Intake & Output 03/17/17 03/18/17 03/19/17 06:59 06:59 06:59 Intake Total 766 986 Output Total 550 600 Balance 216 386 Weight 60.6 kg 61.6 kg General appearance: PRESENT: no acute distress, well-developed, well-nourished Head exam: PRESENT: atraumatic, normocephalic Ear exam: PRESENT: normal external ear exam Respiratory exam: PRESENT: clear to auscultation pelon. ABSENT: rales, rhonchi, wheezes Cardiovascular exam: PRESENT: RRR. ABSENT: diastolic murmur, rubs, systolic murmur GI/Abdominal exam: PRESENT: normal bowel sounds, soft. ABSENT: distended, guarding, mass, organolmegaly, rebound, tenderness Rectal exam: PRESENT: deferred Extremities exam: PRESENT: full ROM. ABSENT: calf tenderness, clubbing, pedal edema Neurological exam: PRESENT: alert, awake, oriented to person, oriented to place , oriented to time, oriented to situation, CN II-XII grossly intact. ABSENT: motor sensory deficit Psychiatric exam: PRESENT: appropriate affect, normal mood. ABSENT: homicidal ideation, suicidal ideation Skin exam: PRESENT: dry, intact, warm. ABSENT: cyanosis, rash Results Laboratory Results: 03/16/17 06:12 03/16/17 06:12 03/15/17 03/15/17 03/15/17 18:17 18:17 22:00 Creatine Kinase 38 CK-MB (CK-2) < 0.22 Troponin I < 0.012 < 0.012 03/16/17 03/16/17 03/16/17 00:17 00:17 06:12 Creatine Kinase 37 37 CK-MB (CK-2) 0.30 Troponin I < 0.012 03/16/17 06:12 Creatine Kinase CK-MB (CK-2) < 0.22 Troponin I < 0.012 Impressions: Chest X-Ray 03/15/17 15:21 IMPRESSION: NO ACUTE RADIOGRAPHIC FINDING IN THE CHEST. Qualifiers PATEINT BEING DISCHARGED WITH ANY OF THE FOLLOWING DIAGNOSIS?: No Plan Time Spent: Greater than 30 Minutes
[2017-03-18] MEDS: FLUOXETINE HCL 20 MG/5 ML UDCUP PO SCH (13:32)
[2017-03-18] MEDS: INSULIN REG, HUMAN 100 UNIT/ML 3 ML VIAL (PYX) SUBCUT PRN (13:33)
[2017-03-18 14:40] VITALS: BP 126/79
--- NOTE | 2017-03-18 18:58 | XCELERA REPORT ---
[address] [address] Transthoracic Echocardiogram Report Name: DAGO EVANGELISTA Age: 71 yrs Gender: Female : 1945 Patient Status: Inpatient Patient Location: [address] [place] [address] Study Date: 03/18/2017 01:06 PM Height: 62 in Weight: 133 lb BSA: 1.6 m2 Procedure: A two-dimensional transthoracic echocardiogram with color flow and Doppler was performed. Study Quality: Poor. The study was technically difficult with many images being suboptimal in quality. Reason For Study: CHEST PAIN History: CHEST PAIN. Ordering Physician: CLEOPATRA GREGORIO Performed By: Ashley Jimenez Interpretation Summary Subopimal stuy.Difficult to assess wall motion.Probably normal LVEF.Poor visualisation and poor doler interogation.Hence no further interpretation possible. MMode/2D Measurements & Calculations RVDd: 2.2 cm LVIDd: 4.7 cm FS: 37.8 % Ao root diam: 2.0 cm IVSd: 0.86 cm LVIDs: 2.9 cm EDV(Teich): 100.1 ml LVPWd: 0.86 cm ESV(Teich): 32.1 ml Ao root area: 3.1 cm2 EF(Teich): 67.9 % Doppler Measurements & Calculations MV E max shar: MV dec slope: Ao V2 max: LV V1 max P.9 cm/sec 133.0 cm/sec 3.1 mmHg MV A max shar: 314.5 cm/sec2 Ao max PG: LV V1 max: 99.2 cm/sec MV dec time: 7.1 mmHg 87.5 cm/sec MV E/A: 0.55 0.17 sec PA V2 max: PI end-d shar: TR max shar: 89.4 cm/sec 84.3 cm/sec 244.1 cm/sec PA max PG: TR max P.2 mmHg 23.8 mmHg Left Ventricle Subopimal stuy.Difficult to assess wall motion.Probably normal LVEF.Poor visualisation and poor doler interogation.Hence no further interpretation possible. : CLEOPATRA GREGORIO > Wanda Escobar
== END 2017-03-18 15:42 | disposition home or self-care (01) ==
LOC: ER 15:16 → EH 17:50 → 4W 20:45 → 4S 03-17 17:19
PROVIDERS: ADMIT Physician Assistant; ATTEND Physician Assistant
PROC: 3E0234Z Introduction of Serum, Toxoid and Vaccine into Muscle, Percutaneous Approach (ICD-10-PCS; principal; 2017-03-18)
DX: R07.89 Other chest pain (principal); I69.354 Hemiplegia and hemiparesis following cerebral infarction affecting left non-dominant side; E11.9 Type 2 diabetes mellitus without complications; I10 Essential (primary) hypertension; Z23 Encounter for immunization; E78.5 Hyperlipidemia, unspecified; I25.2 Old myocardial infarction; I25.10 Atherosclerotic heart disease of native coronary artery without angina pectoris; K21.9 Gastro-esophageal reflux disease without esophagitis; R26.9 Unspecified abnormalities of gait and mobility; F41.9 Anxiety disorder, unspecified; F32.9 Major depressive disorder, single episode, unspecified; G89.29 Other chronic pain; Z79.899 Other long term (current) drug therapy; Z79.84 Long term (current) use of oral hypoglycemic drugs; Z95.5 Presence of coronary angioplasty implant and graft
CPT/HCPCS: 93005 ×2; 99285; 96372; 36415 ×2; 82553 ×2; 82962 ×3; 82550 ×2; 83735; 84100; 84443; 85025; 85027; 80048; 80053; 84484 ×2; 83036; 80061; 93306; 93017; 71010; 78452; 90686; 93010 ×2; 97162; A9500; J2785; A9270 ×19; J1650 ×4; J3490 ×7; Q9969; G8978; G8979; G8980; 90471; G0008; G0378; J1815

== ENCOUNTER 2018-04-29 10:24 | Emergency (ER) | payer MEDICARE, OTHER ==
--- NOTE | 2018-04-29 11:00 | ER Document Report ---
ED Medical Screen (RME) - General Chief Complaint: Bloody Stools Stated Complaint: RECTAL BLEEDING Time Seen by Provider: 04/29/18 10:40 TRAVEL OUTSIDE OF THE [place] IN LAST 30 DAYS: No - Related Data Allergies/Adverse Reactions: codeine [Codeine] Allergy (Verified 03/15/17 18:01) Penicillins Allergy (Verified 03/15/17 18:01) Past Medical History - Past Medical History Cardiac Medical History: Reports: Hx Coronary Artery Disease, Hx Heart Attack - 11/2015, Hx Hypercholesterolemia, Hx Hypertension Pulmonary Medical History: Denies: Hx Asthma, Hx COPD Neurological Medical History: Reports: Hx Cerebrovascular Accident - 7 STROKES; CANNOT WALK USES A W/C. Denies: Hx Seizures Endocrine Medical History: Reports: Hx Diabetes Mellitus Type 2 Renal/ Medical History: Denies: Hx Peritoneal Dialysis GI Medical History: Reports: Hx Gastroesophageal Reflux Disease. Denies: Hx Hepatitis, Hx Hiatal Hernia, Hx Ulcer Psychiatric Medical History: Reports: Hx Depression Infectious Medical History: Denies: Hx Hepatitis Past Surgical History: Reports: Hx Cardiac Catheterization, Hx Orthopedic Surgery, Hx Tubal Ligation. Denies: Hx Mastectomy, Hx Open Heart Surgery, Hx Pacemaker - Immunizations Hx Diphtheria, Pertussis, Tetanus Vaccination: Yes History of Influenza Vaccine for 03/2017 - 08/2017 Season: No Physical Exam - Vital signs Vitals: Temp Pulse Resp BP Pulse Ox 98.0 F 100 17 153/88 H 95 04/29/18 10:33 04/29/18 10:33 04/29/18 10:33 04/29/18 10:33 04/29/18 10:33 Course - Re-evaluation Re-evalutation: 04/29/18 11:00 73-year-old female who presents for constipation. Now is having difficulty in passing stool she is concerned that there is a hard piece of stool making it impossible for her to go to the bathroom. Has used a Dulcolax suppository as well as MiraLAX Colace among other medications. She is on any blood thinning medications at this time has had only a low level bleeding directly from the rectum from what it sounds like. We will defer lab workup at this time. I have seen and performed a rapid medical screening examination for this patient. They will require further investigation and disposition determination by a second provider . - Vital Signs Vital signs: Temp Pulse Resp BP Pulse Ox 98.0 F 100 17 153/88 H 95 04/29/18 10:33 04/29/18 10:33 04/29/18 10:33 04/29/18 10:33 04/29/18 10:33 Doctor's Discharge - Discharge Referrals: CANDY FRY MD [Primary Care Provider] - Follow up as needed
--- NOTE | 2018-04-29 14:01 | ER Document Report ---
ED General - General Chief Complaint: Bloody Stools Stated Complaint: RECTAL BLEEDING Time Seen by Provider: 04/29/18 10:40 Notes: Patient is a 73-year-old female that presents to the emergency department for chief complaint of rectal bleeding and constipation. Patient states that she is been constipated for the last 3 days, not able to have any bowel movement, she has been straining, and today she tried to use a Dulcolax suppository, which immediately after she started having some bleeding from her rectum. This is what brought her to the emergency department. She denies having any lightheadedness, dizziness, chest pain, shortness of breath, nausea, vomiting or diarrhea. She did try using MiraLAX, and prune juice without relief of her constipation. She reports that she does intermittently get constipated. She denies having any abdominal pain at this time associated with it. Past Medical History: CVA, hypertension, hyperlipidemia, diabetes mellitus Past Surgical History: PEG tube placement and removal Social History: Denies tobacco, alcohol or drug use. Family History: Reviewed and noncontributory for presenting illness Allergies: Reviewed, see documented allergy list. REVIEW OF SYSTEMS: Other than noted above, the 12 point review of systems was reviewed with the patient and were negative, all pertinent findings are included in the HPI. PHYSICAL EXAMINATION: Vital signs reviewed, nursing noted reviewed. GENERAL: Well-appearing, well-nourished and in no acute distress. HEAD: Atraumatic, normocephalic. EYES: Eyes appear normal, extraocular movements intact, sclera anicteric, conjunctiva are normal. ENT: nares patent, oropharynx clear without exudates. Moist mucous membranes. NECK: Normal range of motion, supple without lymphadenopathy LUNGS: Breath sounds clear to auscultation bilaterally and equal. No wheezes rales or rhonchi. HEART: Regular rate and rhythm without murmurs ABDOMEN: Soft, nontender, normoactive bowel sounds. No rebound, guarding, or rigidity. No masses appreciated. Rectal exam: With yardage control clerk present, patient was noted to have some bright red blood per rectum, and she was also noted to have hemorrhoids present. She does have stool present at the distal rectum as well. EXTREMITIES: Nontender, good range of motion, no pitting or edema. NEUROLOGICAL: No focal neurological deficits. Moves all extremities spontaneously Motor and sensory grossly intact on exam. PSYCH: Normal mood, normal affect. SKIN: Warm, Dry, normal turgor, no rashes or lesions noted on exposed skin TRAVEL OUTSIDE OF THE [place] IN LAST 30 DAYS: No - Related Data Allergies/Adverse Reactions: codeine [Codeine] Allergy (Verified 04/29/18 11:00) Penicillins Allergy (Verified 04/29/18 11:00) Past Medical History - Social History Smoking Status: Never Smoker Chew tobacco use (# tins/day): No Frequency of alcohol use: None Drug Abuse: None Family History: Reviewed & Not Pertinent Patient has suicidal ideation: No Patient has homicidal ideation: No - Past Medical History Cardiac Medical History: Reports: Hx Coronary Artery Disease, Hx Heart Attack - 11/2015, Hx Hypercholesterolemia, Hx Hypertension Pulmonary Medical History: Denies: Hx Asthma, Hx COPD Neurological Medical History: Reports: Hx Cerebrovascular Accident - 7 STROKES; CANNOT WALK USES A W/C. Denies: Hx Seizures Endocrine Medical History: Reports: Hx Diabetes Mellitus Type 2 Renal/ Medical History: Denies: Hx Peritoneal Dialysis GI Medical History: Reports: Hx Gastroesophageal Reflux Disease. Denies: Hx Hepatitis, Hx Hiatal Hernia, Hx Ulcer Psychiatric Medical History: Reports: Hx Depression Infectious Medical History: Denies: Hx Hepatitis Past Surgical History: Reports: Hx Cardiac Catheterization, Hx Orthopedic Surgery, Hx Tubal Ligation. Denies: Hx Mastectomy, Hx Open Heart Surgery, Hx Pacemaker - Immunizations Hx Diphtheria, Pertussis, Tetanus Vaccination: Yes Physical Exam - Vital signs Vitals: Temp Pulse Resp BP Pulse Ox 98.0 F 100 17 153/88 H 95 04/29/18 10:33 04/29/18 10:33 04/29/18 10:33 04/29/18 10:33 04/29/18 10:33 Course - Re-evaluation Re-evalutation: Patient seen and examined vital signs reviewed. Laboratory data and imaging were ordered as appropriate for the patient's presenting symptoms and complaint, with consideration of any critical or life threatening conditions that may be associated with their obtained history and exam as noted above. Patient was treated with a soap subs enema after a negative KUB for obstruction or megacolon and did identify significant stool burden. Patient had significant relief of her fecal impaction with the enema and was feeling much better, she did not have any further rectal bleeding even with application of the enema. Evaluation was most consistent with fecal impaction and constipation, patient was advised to start taking miralax 17gm daily for help avoid episodes like this in the future. Results were discussed with the patient at this point, after careful consideration I feel that that patient can be discharged from the emergency department, the patient was educated treatments and reasons to return to the emergency department based on their presumed diagnosis as noted above, they were advised to followup with a primary care physician in 2-3 days. Patient was agreeable to plan of care. *Note is created using voice recognition software and may contain spelling, syntax or grammatical errors. KUB X-Ray 04/29/18 12:54 IMPRESSION: NO RADIOGRAPHIC EVIDENCE FOR ACUTE ABDOMINAL DISEASE. - Vital Signs Vital signs: Temp Pulse Resp BP Pulse Ox 99.2 F 100 15 125/114 H 96 04/29/18 17:21 04/29/18 10:33 04/29/18 17:00 04/29/18 17:21 04/29/18 17:21 Discharge - Discharge Clinical Impression: Fecal impaction Constipation Qualifiers: Constipation type: unspecified constipation type Qualified Code(s): K59.00 - Constipation, unspecified Condition: Stable Disposition: HOME, SELF-CARE Instructions: Fecal Impaction ([facility]) Prescriptions: Polyethylene Glycol 3350 [Miralax] 17 gm PO DAILY #238 gm Referrals: CANDY FRY MD [Primary Care Provider] - Follow up in 3-5 days
--- NOTE | 2018-04-29 14:18 | RADIOLOGY REPORT (SQ) ---
EXAM DESCRIPTION: KUB/ABDOMEN (SINGLE VIEW) COMPLETED DATE/TIME: 04/29/2018 1:52 pm REASON FOR STUDY: rectal bleeding, constipation COMPARISON: None. NUMBER OF VIEWS: One view. TECHNIQUE: Supine radiographic image of the abdomen acquired. LIMITATIONS: None. FINDINGS: BOWEL GAS PATTERN: Normal bowel gas pattern. No dilated loops. CALCIFICATIONS: Possible calcified uterine fibroid in the left side of the pelvis. SOFT TISSUES: No gross mass or suggestion of organomegaly. HARDWARE: None in the abdomen. BONES: Scoliosis. OTHER: No other significant finding. IMPRESSION: NO RADIOGRAPHIC EVIDENCE FOR ACUTE ABDOMINAL DISEASE. TECHNICAL DOCUMENTATION: JOB ID: [id number] [employer]- All Rights Reserved Reading location - IP/workstation name: [email or web address]
[2018-04-29 17:28] VITALS: BP 125/114
== END 2018-04-29 17:40 | disposition home or self-care (01) ==
LOC: ER 10:24
DX: K56.41 Fecal impaction (principal); I25.10 Atherosclerotic heart disease of native coronary artery without angina pectoris; E78.00 Pure hypercholesterolemia, unspecified; E11.9 Type 2 diabetes mellitus without complications; I10 Essential (primary) hypertension; I25.2 Old myocardial infarction; Z86.73 Personal history of transient ischemic attack (TIA), and cerebral infarction without residual deficits; Z98.51 Tubal ligation status
CPT/HCPCS: 74018; 99283